=== PATIENT | male | born 1985 | race Caucasian/White ===

== ENCOUNTER 2025-04-16 20:55 | Emergency (ER) | payer OTHER ==
[~2025-04-16] VITALS: Ht 188 cm; Wt 115.0 kg
[2025-04-16] MEDS ORDERED: LIDOCAINE/RACEPINEP/TETRACAINE 3 ML SYR TOP ONE (22:15)
[2025-04-16] MEDS ORDERED: AMOXICILLIN/CLAVULANATE K 875 MG HOME.PACK PO ONE (22:30)
[2025-04-16] MEDS ORDERED: AMOX TR-K CLV1 EAC1 PO (22:56)
[2025-04-16 23:09] VITALS: BP 130/92
== END 2025-04-16 23:11 | disposition home or self-care (01) ==
LOC: ED 20:55
DX: S61.512A Laceration without foreign body of left wrist, initial encounter (principal); W26.0XXA Contact with knife, initial encounter
CPT/HCPCS: 12002; 99282